=== PATIENT | male | born 1990 | race Caucasian/White ===

== ENCOUNTER 2019-06-04 04:34 | Emergency (ER) | payer SELFPAY ==
[2019-06-04 04:35] VITALS: PULSE 95; RESP 22; TEMP 36.7; O2SAT 100; BMI 27.9
[2019-06-04 04:43] VITALS: BP 99/76
--- NOTE | 2019-06-04 04:43 | ED.RN ---
PT IS WRITHING AROUND IN BED IN PAIN, SCREAMING, ASKING FOR PAIN MEDS. EDUCATED PT ON WAITING FOR MD. PT SEEN RUNNING TO BATHROOM AND HAD LARGE AMOUNT OF EMESIS. PENDING MD EVALUATION.
--- NOTE | 2019-06-04 04:46 | CT_ITS ---
STUDY: CT ABDOMEN AND PELVIS WITHOUT CONTRAST REASON FOR EXAM: Male, 29 years old. Right flank pain RADIATION DOSAGE (If Supplied By Facility): CTDIvol = ( 8.31 ) mGy, DLP = ( 441.96 ) mGycm TECHNIQUE: Transaxial images were obtained from the dome of the diaphragm to the symphysis pubis without oral contrast, and without intravenous contrast. Sagittal and coronal images were reconstructed. Individualized dose optimization techniques were used for this CT. COMPARISON: None. FINDINGS: The visualized lung bases are unremarkable. The visualized portions of the heart are within normal limits. Normal liver. Normal gallbladder and extrahepatic biliary system. Normal spleen. Normal pancreas. Normal bilateral adrenal glands. 1 mm nonobstructing right renal stone. 2 mm stone in the distal right ureter at the level of the ureterovesical junction with changes of mild acute obstructive uropathy. Normal left kidney. Normal visualized stomach. Normal small intestine. Normal colon. The appendix is visualized and appears normal. Normal abdominal aorta. Normal inferior vena cava. Normal retroperitoneum. Normal urinary bladder. Normal abdominal wall. Normal osseous structures. CT/Abdomen/Pelvis without Cont IMPRESSION: 2 mm stone in the distal right ureter at the level of the ureterovesical junction with changes of mild acute obstructive uropathy. Electronically Signed: Cedric Collazo MD at 5:46 EST Tel , Service support ,
--- NOTE | 2019-06-04 04:47 | ED.VIS.GEN ---
History of Present Illness Chief Complaint: Flank Pain Detail of Chief Complaint: Right flank pain Informant: Patient Onset: Hours Context: Sudden Onset Current Severity: Severe Maximum Severity: Severe Narrative: Patient presents with severe right flank pain that started rather abruptly tonight. He denies history of kidney stones. No difficulty urinating. He had nausea and vomiting secondary to the pain. - Past Medical History (1) Hepatitis C Status: Chronic Past Medical History - Allergies and Home Meds Allergies/Adverse Reactions: Allergies No Known Allergies Allergy (Verified 05/21/14 03:53) Primary Care Physician: Care Physician,No Primary [Primary Care Provider] - Prior records reviewed: Yes Surgical History: - - Patient denies prior abdominal surgery. Smoking Status: Current every day smoker Drugs: Heroin, - - Xanax Review of Systems General: Denies: Chills, Fever Eyes: Denies: Visual changes - bilaterally ENT: Denies: Bilateral ear pain Cardiovascular: Denies: Chest pain Respiratory: Denies: Dyspnea Gastrointestinal: Reports: Abdominal pain, Nausea, Vomiting Genitourinary: Denies: Dysuria, Hematuria Neurological: Denies: Headache Hematologic: Denies: Easy bruising, Easy bleeding Allergy: Denies: Uticaria Physical Exam Vital Signs/Narrative: Vital Signs Temp Pulse Resp BP Pulse Ox 06/04/19 04:43 99/76 06/04/19 04:35 98.1 F 95 22 H 100 Inital Vital Signs reviewed: Yes General: Well nourished, Well developed Head: Normocephalic ENT: Moist mucous membranes Cardiovascular: Tachycardia Respiratory: No distress, CTA bilaterally Abdomen: Soft, Nontender, Hypoactive bowel sounds Back: CVA tenderness Skin: Normal color Neurological: Alert, Oriented x3 Psychological: - - Anxious Diagnostic/Tx/Re-eval Impressions Abdomen/Pelvis CT 06/04/19 04:46 IMPRESSION: 2 mm stone in the distal right ureter at the level of the ureterovesical junction with changes of mild acute obstructive uropathy. Electronically Signed: Cedric Collazo MD at 5:46 EST Tel , Service support , 06/04/19 04:46 Abdomen/Pelvis without Cont [CT] Stat Laboratory Results 06/04/19 06/04/19 05:00 05:00 WBC 13.3 H RBC 5.07 Hgb 14.9 Hct 44.9 MCV 88.6 MCH 29.4 MCHC 33.2 RDW Std Deviation 40.9 RDW Coeff of Eliot 12.6 Plt Count 253 MPV 9.0 Immature Gran % (Auto) 0.800 Neut % (Auto) 68.8 Lymph % (Auto) 22.0 [place] % (Auto) 7.7 Eos % (Auto) 0.5 Baso % (Auto) 0.2 Absolute Neuts (auto) 9.1 H Absolute Lymphs (auto) 2.93 Nucleated RBC % 0 Sodium 139 Potassium 3.3 L Chloride 104 Carbon Dioxide 24.0 Anion Gap 11 BUN 13 Creatinine 1.31 H Estim Creat Clear Calc 92.15 Est GFR (MDRD) Af Amer 84 Est GFR (MDRD) Non-Af 69 BUN/Creatinine Ratio 9.9 L Glucose 144 H Calcium 9.0 - Medical Decision Making Patient was given morphine, Toradol, Zofran, IV fluids followed by dose of Dilaudid for continued pain. On repeat evaluation is resting comfortably. Test results are discussed with him. He is a 2 mm stone at the UVJ on the right. I suspect that he will pass this shortly. He will be referred to Dr. Pal if he has continued pain. ED Disposition - Plan for ED Patient: Disposition: Home or Assisted Living Diagnosis: Kidney stone on right side Instructions: KIDNEY STONE w/ Colic Prescriptions: Hydrocodone Bitart/Apap 5-325 [[place] 5MG-325MG] 1 tablet PO Q6H PRN PRN 3 Days #10 tablet PRN Reason: Pain Ketorolac [Toradol] 10 mg PO Q6H PRN #14 tablet PRN Reason: Pain Score 1-10/10 Ondansetron [Zofran Odt] 4 mg PO Q8H PRN PRN #10 tablet PRN Reason: Nausea Referrals: Blas Pal MD [STAFF PHYSICIAN] - As Needed
[2019-06-04] MEDS: 0.9% Normal Saline 1,000 ML 250 ML IV (04:56)
[2019-06-04] MEDS: Ondansetron 4 MG/2 ML Vial IV (04:56)
[2019-06-04] MEDS: Morphine 4 MG/ML Syringe IV (04:56)
[2019-06-04] MEDS: Ketorolac 30 MG/ML Syringe IV (04:56)
[2019-06-04 05:13] LABS: Absolute Lymphocyte Count 2.93 X10^3/uL (0.83-4.51); Absolute Neutrophil Count 9.1 X10^3/uL (2.0-7.7); Basophil# 0.03 X10^3/uL; Basophil% 0.2 % (0-1); Eosinophil# 0.07 X10^3/uL; Eosinophils% 0.5 % (0-5); Hematocrit 44.9 % (40-54); Hemoglobin 14.9 g/dL (13.0-16.5); Lymphocyte # 2.93 X10^3/ul (4.0); Mean Corp Hgb Conc 33.2 g/dL (32-36); Mean Corpuscular Hgb 29.4 pg (27.0-32.0); Mean Corpuscular Volume 88.6 fL (80-94); Monocyte# 1.03 X10^3/uL; Monocyte% 7.7 % (0-10); NRBC Flagged by Analyzer 0 % (0-5); Neutrophil # 9.14 X10^3/uL (2.7-7.7); Neutrophil % 68.8 % (47-70); Platelet Count 253 K/mm3 (150-450); RBC Distribution Width CV 12.6 % (11.6-14.6); RBC Distribution Width SD 40.9 fl (35.1-43.9); Red Blood Count 5.07 M/mm3 (4.6-6.2); White Blood Count 13.3 K/mm3 (4.4-11.0)
[2019-06-04] MEDS: HYDROmorphone 1 MG/ML Syringe IV (05:20)
[2019-06-04 05:29] LABS: Anion Gap 11 (5-15); BUN 13 mg/dL (7-18); BUN/Creat Ratio 9.9 RATIO (10-20); Chloride 104 mmol/L (98-107); Creatinine, Serum 1.31 mg/dL (0.70-1.30); EST Glomerular Filtration Rate 69 mL/min (>60); Est Glom Filt Rate - Afr Amer 84 mL/min (>60); Estimated Creatinine Clearance 92.15 ml/min; Glucose 144 mg/dL (74-106); Potassium 3.3 mmol/L (3.5-5.1); Sodium Level 139 mmol/L (136-145)
[2019-06-04 06:37] LABS: Bacteria 0 SEEN /hpf (None Seen); Mucous, Urine 0 SEEN /hpf (<or=2+); Squamous Epithelial Cells - UA 0 SEEN /hpf (0-5)
[2019-06-04 07:01] LABS: Color, Urine Yellow (Yellow); Glucose, Dipstick Normal (Normal); Ketone-Dipstick 50 mg/dl (Negative); Leukocyte Esterase-Dipstick 25 /ul (Negative); Nitrite-Dipstick Negative (Negative); Occult Blood-Urine 50 /ul (Negative); Protein-Dipstick 30 mg/dl (Negative); Specific Gravity, Urine 1.015 (1.002-1.030); Urine Bilirubin Dipstick Negative (Negative); Urine Clarity Cloudy (Clear); Urine Urobilinogen Normal (Normal)
[2019-06-04 07:04] LABS: Red Blood Cells-Urine 0-5 SEEN /hpf (0-5); White Blood Cells 0-5 SEEN /hpf (0-5)
[2019-06-04 07:05] LABS: Amorphous Sediment 3+
[2019-06-04 07:08] VITALS: PULSE 68; RESP 16
== END 2019-06-04 07:00 | disposition home or self-care (01) ==
PROVIDERS: Emergency Provider Emergency Medicine
DX: N20.2 Calculus of kidney with calculus of ureter (principal); F17.200 Nicotine dependence, unspecified, uncomplicated
CPT/HCPCS: 74176; 80048; 81001; 85025; 96361; 96374; 96375; 99283; J7030; A4216; J2405

== ENCOUNTER 2019-06-09 08:26 | Emergency (ER) | payer SELFPAY ==
[2019-06-09 08:28] VITALS: BP 130/85; PULSE 65; RESP 18; TEMP 36.4; O2SAT 100; BMI 26.4
--- NOTE | 2019-06-09 08:30 | ED.VIS.GEN ---
History of Present Illness Chief Complaint: Flank Pain Informant: Patient Onset: Yesterday Context: Gradual Onset Timing: Continuous Current Severity: Moderate Maximum Severity: Moderate Narrative: The patient presents to the emergency department with pain in his right flank and right testicle. The patient was seen here 5 days ago. At that time, he was diagnosed with a 2 mm obstructing stone on the right at the UVJ. The patient states that for about 2 or 3 days, he was pain-free. The pain returned over the past 24 hours. He is been nauseated without vomiting. He denies any fevers or chills. He denies any other systemic symptoms. He is otherwise been in his normal state of health. He does have a remote history of heroin abuse and hepatitis C. Prior similar symptoms: Yes Recent Illness/Hospitalization: No Past Medical History - Allergies and Home Meds Allergies/Adverse Reactions: Allergies No Known Allergies Allergy (Verified 06/09/19 08:35) Primary Care Physician: Blas Pal MD [STAFF PHYSICIAN] - Care Physician,No Primary [Primary Care Provider] - Prior records reviewed: Yes Past Medical History: - - History of heroin abuse Surgical History: - - Patient denies prior abdominal surgery. Smoking Status: Current every day smoker Review of Systems General: Denies: Chills, Fever, Sweats Eyes: Denies: Visual changes - bilaterally, Diplopia ENT: Denies: Rhinorrhea, Sore throat Cardiovascular: Denies: Chest pain, Palpitations Respiratory: Denies: Dyspnea, Cough, Dyspnea on exertion Gastrointestinal: Reports: Nausea. Denies: Abdominal pain, Vomiting, Diarrhea, Melena, Hematochezia Genitourinary: Reports: Frequency. Denies: Dysuria, Hematuria Musculoskeletal: Reports: Back pain. Denies: Extremity Pain Skin: Denies: Rash, Wounds Neurological: Denies: Headache, Weakness, Numbness Physical Exam Inital Vital Signs reviewed: Yes General: Well nourished, Well developed, No Acute Distress Head: Normocephalic, Atraumatic Eyes: Perrl, EOMI ENT: Moist mucous membranes, No rhinorrhea Neck: Supple, Nontender Cardiovascular: Regular rate, Regular rhythm, No murmurs Respiratory: No distress, CTA bilaterally, Chest nontender Abdomen: Soft, Nontender, Nondistended, Normal bowel sounds Back: Nontender, Normal Inspection Extremities: Nontender, No edema Skin: Normal color, No rash Neurological: Alert, Oriented x3, Cranial nerves II-XII grossly intact, Normal Strength, Normal Sensation Psychological: Normal affect, Normal Mood Diagnostic/Tx/Re-eval Clinical Impression(s) from Imaging Studies KUB X-Ray 06/09/19 09:04 IMPRESSION: Moderate amount of fecal material is seen in the colon. Phleboliths are seen in the pelvis. Electronically Signed: Giles Rowe, at 9:26 EST , Service support , Abnormal Lab Results 06/09/19 06/09/19 06/09/19 08:40 08:40 08:40 WBC 13.6 H RBC 5.10 Hgb 14.9 Hct 45.2 MCV 88.6 MCH 29.2 MCHC 33.0 RDW Std Deviation 40.8 RDW Coeff of [place] 12.4 Plt Count 323 MPV 8.9 Immature Gran % (Auto) 0.600 Neut % (Auto) 68.8 Lymph % (Auto) 23.4 [place] % (Auto) 6.8 Eos % (Auto) 0.3 Baso % (Auto) 0.1 Absolute Neuts (auto) 9.3 H Absolute Lymphs (auto) 3.17 Nucleated RBC % 0 Sodium 139 Potassium 3.6 Chloride 107 Carbon Dioxide 25.0 Anion Gap 7 BUN 15 Creatinine 1.12 Estim Creat Clear Calc 107.78 Est GFR (MDRD) Af Amer 100 Est GFR (MDRD) Non-Af 83 BUN/Creatinine Ratio 13.4 Glucose 104 Calcium 8.9 Urine Color Yellow Urine Clarity Sl. Cloudy Urine pH 6.0 Ur Specific [place] 1.020 Urine Protein 30 H Urine Glucose (UA) Normal Urine Ketones 5 H Urine Occult Blood 250 H Urine Nitrite Negative Urine Bilirubin Negative Urine Urobilinogen Normal Ur Leukocyte Esterase 100 H Urine RBC 25-50 SEEN Urine WBC 10-25 SEEN Ur Squamous Epith Cells 0-5 SEEN Urine Bacteria 1+ Urine Mucus 1+ - Medical Decision Making The patient presents with recurrent pain from the stone. I did review his imaging and he had a 2 mm stone right at the junction. IV was established. The patient was given fluids. I ordered him morphine, but he refused. He was given Toradol and was totally pain-free. His urine does show some questionable evidence of infection so culture was added. KUB does not show any definitive stone. On reevaluation, he continues to rest comfortably. I am going to treat him with oral antibiotics. My suspicion is that he is likely passed the stone now that he is pain-free. He will continue to follow-up with outpatient urology or return with any worsening symptoms. Impression none. Kidney stone with colic ED Disposition - Plan for ED Patient: Instructions: KIDNEY STONE, Passed Prescriptions: Smz/Tmp Ds [Bactrim Ds] 1 tab PO BID #14 tab Prescription Printed Hydrocodone Bitart/Apap 5-325 [[place] 5MG-325MG] 1 tab PO Q6H PRN PRN 3 Days #10 tab PRN Reason: Pain Prescription Printed Ondansetron [Zofran Odt] 4 mg PO Q8H PRN PRN #10 tab PRN Reason: Nausea Prescription Printed Referrals: Care Physician,No Primary [Primary Care Provider] - Blas Pal MD [STAFF PHYSICIAN] -
[2019-06-09] MEDS: 0.9% Normal Saline 1,000 ML 250 ML IV (08:48)
[2019-06-09] MEDS: Ketorolac 30 MG/ML Syringe IV (08:48)
[2019-06-09] MEDS: Ondansetron 4 MG/2 ML Vial IV (08:49)
--- NOTE | 2019-06-09 08:49 | ED.RN ---
PT DECLINED MORPHINE AT PRESENT. REPORTS PAIN HAS SUBSIDED SOME SINCE ARRIVAL
[2019-06-09 08:53] LABS: Color, Urine Yellow (Yellow); Glucose, Dipstick Normal (Normal); Ketone-Dipstick 5 mg/dl (Negative); Leukocyte Esterase-Dipstick 100 /ul (Negative); Nitrite-Dipstick Negative (Negative); Occult Blood-Urine 250 /ul (Negative); Protein-Dipstick 30 mg/dl (Negative); Urine Bilirubin Dipstick Negative (Negative); Urine Clarity Sl. Cloudy (Clear); Urine Urobilinogen Normal (Normal)
[2019-06-09 08:55] LABS: Absolute Lymphocyte Count 3.17 X10^3/uL (0.83-4.51); Absolute Neutrophil Count 9.3 X10^3/uL (2.0-7.7); Basophil# 0.02 X10^3/uL; Basophil% 0.1 % (0-1); Eosinophil# 0.04 X10^3/uL; Eosinophils% 0.3 % (0-5); Hematocrit 45.2 % (40-54); Hemoglobin 14.9 g/dL (13.0-16.5); Lymphocyte # 3.17 X10^3/ul (4.0); Lymphocyte % 23.4 % (19-41); Mean Corpuscular Hgb 29.2 pg (27.0-32.0); Mean Corpuscular Volume 88.6 fL (80-94); Mean Platelet Vol. 8.9 fl (6.2-12.0); Monocyte# 0.92 X10^3/uL; Monocyte% 6.8 % (0-10); NRBC Flagged by Analyzer 0 % (0-5); Neutrophil # 9.33 X10^3/uL (2.7-7.7); Neutrophil % 68.8 % (47-70); Platelet Count 323 K/mm3 (150-450); RBC Distribution Width CV 12.4 % (11.6-14.6); RBC Distribution Width SD 40.8 fl (35.1-43.9); White Blood Count 13.6 K/mm3 (4.4-11.0)
[2019-06-09 09:01] LABS: Bacteria 1+ /hpf (None Seen); Mucous, Urine 1+ /hpf (<or=2+); Red Blood Cells-Urine 25-50 SEEN /hpf (0-5); Squamous Epithelial Cells - UA 0-5 SEEN /hpf (0-5); White Blood Cells 10-25 SEEN /hpf (0-5)
--- NOTE | 2019-06-09 09:04 | RAD_ITS ---
STUDY: X-RAY - ABDOMEN/PELVIS REASON FOR EXAM: Male, 29 years old. Right flank pain. TECHNIQUE: Single AP view of the abdomen / pelvis. COMPARISON: None. FINDINGS: Normal visualized lung bases. There is a moderate amount of colonic fecal material. There is no demonstrated free abdominal air. The visualized liver, spleen and kidneys are grossly normal in size and morphology. There are calcified phleboliths in the pelvis. Normal visualized osseous structures. RAD/Abdomen Single View IMPRESSION: Moderate amount of fecal material is seen in the colon. Phleboliths are seen in the pelvis. Electronically Signed: Giles Rowe, at 9:26 EST , Service support ,
[2019-06-09 09:09] LABS: Anion Gap 7 (5-15); BUN 15 mg/dL (7-18); BUN/Creat Ratio 13.4 RATIO (10-20); Calcium,Total 8.9 mg/dL (8.5-10.1); Chloride 107 mmol/L (98-107); Creatinine, Serum 1.12 mg/dL (0.70-1.30); EST Glomerular Filtration Rate 83 mL/min (>60); Est Glom Filt Rate - Afr Amer 100 mL/min (>60); Estimated Creatinine Clearance 107.78 ml/min; Glucose 104 mg/dL (74-106); Potassium 3.6 mmol/L (3.5-5.1); Sodium Level 139 mmol/L (136-145)
[2019-06-09 10:11] VITALS: BP 115/68; PULSE 52; RESP 16; O2SAT 98
== END 2019-06-09 10:10 | disposition home or self-care (01) ==
PROVIDERS: Emergency Provider Emergency Medicine
DX: N20.0 Calculus of kidney (principal); F17.200 Nicotine dependence, unspecified, uncomplicated
CPT/HCPCS: 74018; 80048; 81001; 85025; 87086; 96361; 96374; 96375; 99285; J2405